=== PATIENT | female | born 1960 | race Caucasian/White ===

== ENCOUNTER 2016-11-26 10:02 | Emergency (ER) | payer SELFPAY ==
[~2016-11-26 10:02] MED LIST: PRED20 PO
[2016-11-26 10:10] VITALS: BP 157/92; PULSE 112; RESP 16; TEMP 97.6; O2SAT 96
[2016-11-26] MEDS ORDERED: KETOROLAC TROMETHAMINE 60 MG/2 ML (IM) VIAL IM ONE (11:15)
[2016-11-26] MEDS ORDERED: ORPHENADRINE INJ 60 MG/2 ML AMP IM ONE (11:15)
[2016-11-26] MEDS ORDERED: IBUP800T23 PO (11:22)
[2016-11-26] MEDS ORDERED: ROBA750T PO (11:22)
--- NOTE | 2016-11-26 11:22 | PD ---
HPI Chief Complaint: Pain: Acute or Chronic Time Seen by Provider: 11:00 Travel History International Travel<30 days: No Contact w/Intl Traveler<30days: No Traveled to known affect area: No History of Present Illness HPI 56-year-old female presents to the emergency room for evaluation of left buttocks pain radiating down the left lower extremity for the past 3 weeks. Patient states just prior to onset of symptoms she was running around with children but denies any other trauma or injury. Pain is constant, dull, achy, and occasionally sharp, stabbing. States pain is intermittent, occasionally worse with certain range of motion and ambulation. Improves with ice. She has been taking NSAIDs which temporarily relieve her symptoms. No history of sciatica. Denies weight loss, fever, chills, IV drug use. Denies saddle anesthesia, loss of bowel or bladder control, or lower extremity paresthesias. PFSH Past Medical History High Cholesterol: Yes Hypertension: Yes Psychiatric: Yes Menopausal: Yes Past Surgical History Other Surgery: Yes (BROKEN JAW IN PAST) Social History Alcohol Use: Yes (SOCIALLY) Tobacco Use: Yes (1/2PPD) Substance Use: Yes (POT) Allergies-Medications (Allergen,Severity, Reaction): Coded Allergies: Codeine (Verified Allergy, Unknown, ITCH, 11/26/16) Reported Meds & Prescriptions Reported Meds & Active Scripts Active No Active Prescriptions or Reported Medications Review of Systems Except as stated in HPI: all other systems reviewed are Neg Physical Exam Narrative GENERAL: Well-nourished, well-developed female in no acute distress. Afebrile. Ambulatory without difficulty. SKIN: Warm and dry. HEAD: Normocephalic. EYES: No scleral icterus. No injection or drainage. NECK: Supple, trachea midline. No JVD or lymphadenopathy. BACK: No CVA tenderness. No rash. No point tenderness on palpation of the spine. 2+ Achilles and patellar reflexes are equal bilaterally. Strength 5/5 and equal in lower extremities. Tenderness to palpation over the left SI joint. Data Data Last Documented VS Vital Signs Date Time Temp Pulse Resp B/P Pulse Ox O2 Delivery O2 Flow Rate FiO2 11/26/16 10:10 97.6 112 16 157/92 96 Orders Ketorolac Inj (Toradol Inj) (11/26/16 11:15) Orphenadrine Inj (Norflex Inj) (11/26/16 11:15) [facility] Medical Decision Making Medical Screen Exam Complete: Yes Emergency Medical Condition: Yes Medical Record Reviewed: Yes Differential Diagnosis Degenerative disc disease versus sciatica versus bursitis versus osteoarthritis Narrative Course 56-year-old female presents to the emergency room for evaluation of left lower buttock pain that radiates down the left lower extremity for the past 3 weeks. Pain is constant dull ache that occasionally she feels sharp, stabbing. Left lower extremity is neurovascularly intact. Full range of motion of the hip and back. Strength 5/5 and equal and 2+ patellar and Achilles reflexes are equal bilaterally. No midline tenderness of the spine. No acute trauma or injury. No red flag symptoms. No indication for emergent imaging. Patient will be given Toradol and Norflex in the emergency room. Discharged with prescriptions for ibuprofen and Robaxin. Told to follow up with a primary care physician or return to the emergency room for worsening symptoms. He understands and agrees to this plan. Diagnosis Primary Impression: Left sided sciatica Referrals: Primary Care Physician Patient Instructions: General Instructions, Sciatica (ED) Additional Instructions: Rest and drink plenty of fluids. Take Robaxin as directed, as needed for pain. Take ibuprofen with food as directed, as needed for pain. Apply ice to the affected area for 20 minutes at a time, as needed for pain and swelling. Follow-up with a primary care physician. Return to the emergency room for worsening symptoms. Med/Other Pt SpecificInfo: Prescription(s) given Scripts No Active Prescriptions or Reported Meds Disposition: 01 DISCHARGE HOME Condition: Stable Valerie Ervin Nov 26, 2016 11:22
== END 2016-11-26 11:39 | disposition home or self-care (01) ==
LOC: PHEFT 10:02
DX: M54.32 Sciatica, left side (principal)
CPT/HCPCS: 96372; 99283; J1885; J2360